=== PATIENT | female | born 1955 | race Caucasian/White ===

== ENCOUNTER 2018-12-19 05:01 | Inpatient (IN) ==
[2018-12-19] MEDS ORDERED: VANCOMYCIN INJ 1,000 MG in SODIUM CHLORIDE 0.9% 250 ML IV ONE (06:00)
[2018-12-19] MEDS ORDERED: ceFAZolin 1,000 MG in SYRINGE 1 EACH IV ONE (06:00)
[2018-12-19] MEDS ORDERED: FLECAINIDE 100 MG TABLET PO STA (06:32)
[2018-12-19] MEDS ORDERED: METOPROLOL TARTRATE 25 MG TABLET PO STA (06:32)
[2018-12-19] MEDS ORDERED: VANCOMYCIN 1,000 MG VIAL ONE (06:36)
[2018-12-19] MEDS ORDERED: ceFAZolin 1,000 MG VIAL ONE (06:36)
[2018-12-19] MEDS ORDERED: ROPIVACAINE 0.5% 30 ML VIAL ONE (06:56)
[2018-12-19] MEDS ORDERED: BUPIVACAINE SPINAL 0.75% 2 ML AMP SPINAL ONE (06:56)
[2018-12-19] MEDS ORDERED: DIAZEPAM 5 MG TABLET PO ONE (06:56)
[2018-12-19] MEDS ORDERED: FAMOTIDINE 20 MG TABLET PO ONE (06:56)
[2018-12-19] MEDS ORDERED: LACTATED RINGERS 1,000 ML IV SCH (07:00)
[2018-12-19] MEDS ORDERED: DIAZEPAM 5 MG TABLET ONE (07:04)
[2018-12-19] MEDS ORDERED: FAMOTIDINE 20 MG TABLET ONE (07:04)
[2018-12-19] MEDS ORDERED: TRANEXAMIC ACID 1,000 MG/10 ML VIAL ONE (07:10)
[2018-12-19] MEDS ORDERED: BACITRACIN OINT 0.9 GM PACK TOP ONE (07:13)
[2018-12-19] MEDS ORDERED: fentaNYL 100 MCG/2 ML VIAL ONE (10:04)
[2018-12-19] MEDS ORDERED: MIDAZOLAM 2 MG/2 ML VIAL ONE (10:04)
[2018-12-19] MEDS ORDERED: ePHEDrine 50 MG/ML AMP ONE (10:05)
[2018-12-19] MEDS ORDERED: SODIUM CHLORIDE 0.9% 250 ML IV ONE (10:05)
[2018-12-19] MEDS ORDERED: MEPERIDINE 25 MG/1 ML VIAL ONE (10:05)
[2018-12-19] MEDS ORDERED: ACETAMINOPHEN 1,000 MG/100 ML VIAL IV ONE (10:05)
[2018-12-19] MEDS ORDERED: SODIUM CHLORIDE 0.9% 100 ML IV ONE (10:05)
[2018-12-19] MEDS ORDERED: PROPOFOL 200 MG/20 ML VIAL IV ONE (10:05)
[2018-12-19] MEDS ORDERED: SEVOFLURANE 1 UNIT/15 MINUTE INH ONE (10:05)
[2018-12-19] MEDS ORDERED: LACTATED RINGERS 1,000 ML IV ONE (10:05)
[2018-12-19] MEDS ORDERED: ONDANSETRON 4 MG/2 ML VIAL ONE ×2 (10:05→10:06)
[2018-12-19] MEDS ORDERED: PROMETHAZINE 25 MG/1 ML VIAL ONE (10:06)
[2018-12-19] MEDS ORDERED: HYDROmorphone 2 MG/1 ML VIAL ONE (10:06)
[2018-12-19] MEDS: HYDROmorphone 2 MG/1 ML VIAL IV PRN ×4 (10:10→10:25)
[2018-12-19] MEDS ORDERED: PROMETHAZINE INJ 25 MG in SODIUM CHLORIDE 0.9% 50 ML IV PRN (10:14)
[2018-12-19] MEDS ORDERED: ONDANSETRON 4 MG/2 ML VIAL IV PRN (10:14)
[2018-12-19] MEDS ORDERED: MEPERIDINE 25 MG/1 ML VIAL IV PRN (10:14)
[2018-12-19] MEDS ORDERED: diphenhydrAMINE CAP 25 MG CAPSULE PO PRN (10:40)
[2018-12-19] MEDS ORDERED: MORPHINE 4 MG/1 ML VIAL IV PRN ×2 (10:40)
[2018-12-19] MEDS ORDERED: ZALEPLON 5 MG CAPSULE PO PRN (10:40)
[2018-12-19] MEDS ORDERED: MAGNESIUM HYDROXIDE SUSP 30 ML UDCUP PO PRN (10:40)
[2018-12-19] MEDS ORDERED: oxyCODONE IR 5 MG TABLET PO PRN ×2 (10:40)
[2018-12-19] MEDS: LACTATED RINGERS 1,000 ML IV SCH ×3 (11:14→22:15)
[2018-12-19] MEDS: KETOROLAC 30 MG/1 ML VIAL IV SCH ×3 (11:16→23:19)
[2018-12-19] MEDS ORDERED: KETOROLAC 30 MG/1 ML VIAL ONE (11:16)
[2018-12-19] MEDS ORDERED: GLUCAGON 1 MG VIAL IM PRN (13:54)
[2018-12-19] MEDS ORDERED: DEXTROSE 50% 25 GM/50 ML SYRINGE IV PRN (13:54)
[2018-12-19] MEDS: ACETAMINOPHEN 500 MG TABLET PO SCH ×2 (14:26→20:36)
[2018-12-19] MEDS: ceFAZolin 2,000 MG in PREMIX 1 EACH IV SCH ×2 (14:27→23:25)
[2018-12-19 16:37] LABS: Basophils % 0.3 % (0.0-0.8); Eosinophils # 0.1 10*3/uL (0.0-0.87); Eosinophils % 0.6 % (0.00-10.9); Immature Granulocytes % 0.5 %; Immature Granulocytes Absolute 0.04 #; Lymphocytes # 1.5 10*3/uL (1.4-4.0); Mean Corpuscular HGB Conc 31.4 GM/DL (32-36); Mean Corpuscular Hemoglobin 29 PG (27-34); Mean Corpuscular Volume 93.3 FL (87-102); Mean Platelet Volume 9.5 FL (9.6-12.0); Monocytes # 0.7 10*3/uL (0.11-0.8); Monocytes % 7.8 % (1.7-12.7); Neutrophils # 6.5 10*3/uL (1.4-7.4); Neutrophils % 73.8 % (38.7-73.9); Platelet Count 163 T/CUMM (130-400); Red Blood Count 3.75 MC/CUMM (3.8-5.5); Red Cell Distribution Width 12.7 % (9.3-17.3); White Blood Count 8.8 T/CUMM (4-12)
[2018-12-19] MEDS: INSULIN LISPRO 100 UNIT/ML SUBCUT SCH ×2 (16:48→22:15)
[2018-12-19 16:51] LABS: Calcium 8.3 MG/DL (8.5-10.1); Osmolality,Calculated 283.1 MOS/KG (273-304); Potassium 4.4 MMOL/L (3.5-5.1)
[2018-12-19] MEDS: metFORMIN 500 MG TABLET PO SCH (16:52)
[2018-12-19] MEDS ORDERED: SIMVASTATIN 20 MG TABLET PO SCH ×2 (19:00→21:00)
[2018-12-19] MEDS: FLECAINIDE 50 MG TABLET PO SCH (20:34)
[2018-12-19] MEDS: GABAPENTIN 600 MG TABLET PO SCH (20:35)
[2018-12-19] MEDS: DOCUSATE SODIUM 100 MG CAPSULE PO SCH (20:35)
[2018-12-19] MEDS: FERROUS SULFATE 325 MG TABLET PO SCH (20:35)
[2018-12-19] MEDS: PANTOPRAZOLE 40 MG TABLET PO SCH (20:35)
[2018-12-19] MEDS: buPROPion SR 150 MG TABLET PO SCH (20:35)
[2018-12-19] MEDS: METOPROLOL TARTRATE 25 MG TABLET PO SCH (20:36)
[2018-12-19] MEDS ORDERED: CITALOPRAM 20 MG TABLET PO SCH (21:00)
[2018-12-20] MEDS: LACTATED RINGERS 1,000 ML IV SCH (03:08)
[2018-12-20] MEDS: ACETAMINOPHEN 500 MG TABLET PO SCH ×2 (03:56→08:45)
[2018-12-20] MEDS: KETOROLAC 30 MG/1 ML VIAL IV SCH ×2 (05:50→10:12)
[2018-12-20] MEDS ORDERED: FONDAPARINUX 2.5 MG/0.5 ML SYRINGE SUBCUT SCH (06:00)
[2018-12-20 06:43] LABS: Calcium 8.1 MG/DL (8.5-10.1); Osmolality,Calculated 272.8 MOS/KG (273-304); Potassium 4.2 MMOL/L (3.5-5.1)
[2018-12-20 06:56] LABS: Basophils % 0.4 % (0.0-0.8); Eosinophils # 0.1 10*3/uL (0.0-0.87); Eosinophils % 0.8 % (0.00-10.9); Hematocrit 32.6 VOL% (35.7-47.0); Hemoglobin 10.3 GM/DL (12.0-16.0); Immature Granulocytes % 0.2 %; Immature Granulocytes Absolute 0.02 #; Lymphocytes # 1.3 10*3/uL (1.4-4.0); Lymphocytes % 15.6 % (21.3-54.2); Mean Corpuscular HGB Conc 31.6 GM/DL (32-36); Mean Corpuscular Hemoglobin 29 PG (27-34); Mean Corpuscular Volume 92.1 FL (87-102); Mean Platelet Volume 9.7 FL (9.6-12.0); Monocytes # 0.7 10*3/uL (0.11-0.8); Monocytes % 8.4 % (1.7-12.7); Neutrophils # 6.2 10*3/uL (1.4-7.4); Neutrophils % 74.6 % (38.7-73.9); Platelet Count 179 T/CUMM (130-400); Red Blood Count 3.54 MC/CUMM (3.8-5.5); Red Cell Distribution Width 12.6 % (9.3-17.3); White Blood Count 8.3 T/CUMM (4-12)
[2018-12-20] MEDS: INSULIN LISPRO 100 UNIT/ML SUBCUT SCH ×2 (07:27→12:44)
[2018-12-20] MEDS: metFORMIN 500 MG TABLET PO SCH (08:44)
[2018-12-20] MEDS: buPROPion SR 150 MG TABLET PO SCH (08:44)
[2018-12-20] MEDS: FLECAINIDE 50 MG TABLET PO SCH (08:44)
[2018-12-20] MEDS: METOPROLOL TARTRATE 25 MG TABLET PO SCH (08:45)
[2018-12-20] MEDS: DOCUSATE SODIUM 100 MG CAPSULE PO SCH (08:46)
[2018-12-20] MEDS: PANTOPRAZOLE 40 MG TABLET PO SCH (08:46)
[2018-12-20] MEDS: GABAPENTIN 600 MG TABLET PO SCH (08:46)
[2018-12-20] MEDS: FERROUS SULFATE 325 MG TABLET PO SCH (08:46)
[2018-12-20 12:11] VITALS: BP 118/58
[2018-12-20] MEDS ORDERED: CELECOXIB 200 MG CAPSULE PO SCH (16:41)
[2018-12-21] MEDS ORDERED: FUROSEMIDE 40 MG TABLET PO SCH (09:00)
== END 2018-12-20 12:43 | disposition home health service (06) | DRG 470 ==
LOC: N.OR 05:01 → N.SDSINP 05:02 → N.3E 10:40
PROVIDERS: ADMIT Orthopaedic Surgery; ATTEND Orthopaedic Surgery

== ENCOUNTER 2022-03-08 16:34 | Observation (INO) ==
[2022-03-08] MEDS ORDERED: MECLIZINE 25 MG TABLET PO STA (18:43)
[2022-03-08] MEDS ORDERED: ONDANSETRON 4 MG/2 ML VIAL IV STA (18:43)
[2022-03-08] MEDS ORDERED: SODIUM CHLORIDE 0.9% 500 ML IV STA ×2 (18:43→21:40)
[2022-03-08 19:30] LABS: Basophils % 0.5 % (0.0-0.8); Eosinophils % 0.6 % (0.00-10.9); Hematocrit 39.1 VOL% (35.7-47.0); Hemoglobin 12.9 GM/DL (12.0-16.0); Immature Granulocytes % 0.2 %; Immature Granulocytes Absolute 0.01 #; Lymphocytes # 1.8 10*3/uL (1.4-4.0); Mean Corpuscular Volume 94.2 FL (87-102); Mean Platelet Volume 9.2 FL (9.6-12.0); Monocytes # 0.5 10*3/uL (0.11-0.8); Monocytes % 7.5 % (1.7-12.7); Neutrophils % 64.2 % (38.7-73.9); Platelet Count 207 T/CUMM (130-400); Red Blood Count 4.15 MC/CUMM (3.8-5.5); Red Cell Distribution Width 12.4 % (9.3-17.3); White Blood Count 6.6 T/CUMM (4-12)
[2022-03-08 19:50] LABS: Alanine Aminotransferase 19 U/L (13-56); Albumin 3.7 G/DL (3.4-5.0); Alkaline Phosphatase 70 U/L (45-117); Aspartate Amino Transferase 15 U/L (0-37); Blood Urea Nitrogen 26 MG/DL (7-18); Calcium 8.8 MG/DL (8.5-10.1); Carbon Dioxide 23 MMOL/L (21-32); Chloride 107 MMOL/L (98-107); Osmolality,Calculated 274.8 MOS/KG (273-304); Potassium 4.6 MMOL/L (3.5-5.1); Sodium 137 MMOL/L (136-145); Total Protein 6.6 G/DL (6.4-8.2)
[2022-03-08 19:57] LABS: Glucose 46 MG/DL (74-106)
[2022-03-08] MEDS ORDERED: DEXTROSE 50% 25 GM/50 ML VIAL IV STA (19:57)
[2022-03-08] MEDS ORDERED: DEXTROSE 50% 25 GM/50 ML SYRINGE IV STA (20:02)
[2022-03-08] MEDS ORDERED: DEXTROSE 50% 25 GM/50 ML SYRINGE IV ONE (20:02)
[2022-03-08 21:01] LABS: Bacteria,Urine Occasional /HPF (Few); Hyaline Casts,Urine 18 /LPF (0-3); Mucus,Urine Occasional /LPF (Occasional); RBC,Urine 1 /HPF (0-4); Squamous Epithelial Cell,Urine Occasional /HPF (0-10)
[2022-03-08 21:03] LABS: Bilirubin,Urine Negative (Negative); Blood, Urine Negative (Negative); Glucose,Urine (UA) Negative (Negative); Ketones,Urine Negative (Negative); Nitrite,Urine Negative (Negative); Protein,Urine Negative (Negative); Urine Appearance Clear (Clear); Urine Color Yellow (Yellow); Urine Specific Gravity 1.015 (1.001-1.035); Urine Urobilinogen 0.2 eU/dL (<2.0)
[2022-03-08 21:04] LABS: Barbiturates Screen,Urine Negative (Negative); Benzodiazepines Screen,Urine Negative (Negative); Cannabinoid Screen,Urine Negative (Negative); Opiate Screen,Urine Negative (Negative); Phencyclidine Screen,Urine Negative (Negative)
[2022-03-09] MEDS ORDERED: ONDANSETRON 4 MG/2 ML VIAL IV PRN (00:42)
[2022-03-09] MEDS ORDERED: ACETAMINOPHEN 325 MG TABLET PO PRN (00:42)
[2022-03-09] MEDS ORDERED: GLUCAGON 1 MG VIAL IM PRN (00:42)
[2022-03-09] MEDS ORDERED: DEXTROSE 10% 250 ML BAG IV PRN (00:46)
[2022-03-09] MEDS: SODIUM CHLORIDE 0.9% 1,000 ML IV SCH ×3 (01:00→21:39)
[2022-03-09] MEDS: INSULIN REGULAR 100 UNIT/ML SUBCUT SCH ×5 (01:11→21:44)
[2022-03-09 02:21] LABS: Basophils # 0.1 10*3/uL (0.0-0.2); Basophils % 0.8 % (0.0-0.8); Eosinophils # 0.1 10*3/uL (0.0-0.87); Eosinophils % 1.9 % (0.00-10.9); Hematocrit 34.9 VOL% (35.7-47.0); Hemoglobin 11.6 GM/DL (12.0-16.0); Immature Granulocytes % 0.2 %; Immature Granulocytes Absolute 0.01 #; Lymphocytes # 2.5 10*3/uL (1.4-4.0); Mean Corpuscular HGB Conc 33.2 GM/DL (32-36); Mean Corpuscular Volume 93.1 FL (87-102); Mean Platelet Volume 9.1 FL (9.6-12.0); Monocytes # 0.6 10*3/uL (0.11-0.8); Monocytes % 10.2 % (1.7-12.7); Neutrophils % 46.9 % (38.7-73.9); Platelet Count 174 T/CUMM (130-400); Red Blood Count 3.75 MC/CUMM (3.8-5.5); Red Cell Distribution Width 12.5 % (9.3-17.3); White Blood Count 6.2 T/CUMM (4-12)
[2022-03-09 02:43] LABS: Albumin 3.2 G/DL (3.4-5.0); Bilirubin,Total 0.5 MG/DL (0.20-1.00); Calcium 8.3 MG/DL (8.5-10.1); Osmolality,Calculated 277.8 MOS/KG (273-304); Potassium 4.4 MMOL/L (3.5-5.1); Total Protein 6.1 G/DL (6.4-8.2)
[2022-03-09] MEDS ORDERED: NON-FORMULARY MEDICATION (Omeprazole 20 MG capsule,delayed release(DR/EC)) PO SCH (09:00)
[2022-03-09] MEDS ORDERED: SIMVASTATIN 20 MG TABLET PO SCH ×2 (09:00→21:00)
[2022-03-09] MEDS: buPROPion SR 150 MG TABLET PO SCH ×2 (09:08→21:39)
[2022-03-09] MEDS: NABUMETONE 500 MG TABLET PO SCH ×2 (09:08→21:38)
[2022-03-09] MEDS: METOPROLOL TARTRATE 25 MG TABLET PO SCH ×2 (09:08→21:39)
[2022-03-09] MEDS: FLECAINIDE 50 MG TABLET PO SCH ×2 (09:08→21:38)
[2022-03-09] MEDS: PANTOPRAZOLE 40 MG TABLET PO SCH (09:08)
[2022-03-09] MEDS: ASPIRIN EC 81 MG TABLET PO SCH (09:08)
[2022-03-09] MEDS: DOCUSATE SODIUM 100 MG CAPSULE PO SCH ×2 (09:08→21:39)
[2022-03-09] MEDS: FERROUS SULFATE 325 MG TABLET PO SCH ×2 (09:08→21:39)
[2022-03-09] MEDS: GABAPENTIN 600 MG TABLET PO SCH ×2 (09:08→21:38)
[2022-03-09] MEDS ORDERED: CITALOPRAM 40 MG TABLET PO SCH (21:00)
[2022-03-10 04:46] LABS: Basophils % 0.8 % (0.0-0.8); Eosinophils # 0.1 10*3/uL (0.0-0.87); Eosinophils % 2.3 % (0.00-10.9); Hematocrit 36.4 VOL% (35.7-47.0); Hemoglobin 12.2 GM/DL (12.0-16.0); Immature Granulocytes % 0.2 %; Immature Granulocytes Absolute 0.01 #; Lymphocytes # 1.9 10*3/uL (1.4-4.0); Lymphocytes % 40.1 % (21.3-54.2); Mean Corpuscular HGB Conc 33.5 GM/DL (32-36); Mean Corpuscular Volume 92.2 FL (87-102); Mean Platelet Volume 9.1 FL (9.6-12.0); Monocytes # 0.6 10*3/uL (0.11-0.8); Monocytes % 12.3 % (1.7-12.7); Neutrophils % 44.3 % (38.7-73.9); Platelet Count 170 T/CUMM (130-400); Red Blood Count 3.95 MC/CUMM (3.8-5.5); Red Cell Distribution Width 12.3 % (9.3-17.3); White Blood Count 4.7 T/CUMM (4-12)
[2022-03-10 05:14] LABS: Bilirubin,Total 0.4 MG/DL (0.20-1.00); Calcium 9.2 MG/DL (8.5-10.1); Potassium 4.7 MMOL/L (3.5-5.1); Thyroid Stimulating Hormone 1.28 uIU/ml (0.358-3.74)
[2022-03-10] MEDS: SODIUM CHLORIDE 0.9% 1,000 ML IV SCH (06:43)
[2022-03-10 07:42] VITALS: BP 146/76
[2022-03-10] MEDS: INSULIN REGULAR 100 UNIT/ML SUBCUT SCH (07:50)
[2022-03-10] MEDS: buPROPion SR 150 MG TABLET PO SCH (08:09)
[2022-03-10] MEDS: FERROUS SULFATE 325 MG TABLET PO SCH (08:09)
[2022-03-10] MEDS: GABAPENTIN 600 MG TABLET PO SCH (08:09)
[2022-03-10] MEDS: NABUMETONE 500 MG TABLET PO SCH (08:09)
[2022-03-10] MEDS: DOCUSATE SODIUM 100 MG CAPSULE PO SCH (08:09)
[2022-03-10] MEDS: METOPROLOL TARTRATE 25 MG TABLET PO SCH (08:10)
[2022-03-10] MEDS: ASPIRIN EC 81 MG TABLET PO SCH (08:10)
[2022-03-10] MEDS: FLECAINIDE 50 MG TABLET PO SCH (08:10)
[2022-03-10] MEDS: PANTOPRAZOLE 40 MG TABLET PO SCH (08:10)
[2022-03-10] MEDS ORDERED: FUROSEMIDE 40 MG TABLET PO SCH (09:00)
== END 2022-03-10 09:56 | disposition home or self-care (01) ==
LOC: N.ED 16:34 → N.EDINP 16:34 → N.3E 03-09 01:09
PROVIDERS: ADMIT Family Medicine; ATTEND Family Medicine

== ENCOUNTER 2022-03-30 20:26 | Observation (INO) ==
[2022-03-30 21:18] LABS: Basophils % 0.4 % (0.0-0.8); Eosinophils # 0.1 10*3/uL (0.0-0.87); Hematocrit 35.8 VOL% (35.7-47.0); Hemoglobin 12.3 GM/DL (12.0-16.0); Immature Granulocytes % 0.4 %; Immature Granulocytes Absolute 0.03 #; Lymphocytes # 1.2 10*3/uL (1.4-4.0); Lymphocytes % 17.7 % (21.3-54.2); Mean Corpuscular HGB Conc 34.4 GM/DL (32-36); Mean Corpuscular Volume 91.6 FL (87-102); Mean Platelet Volume 9.6 FL (9.6-12.0); Monocytes # 0.6 10*3/uL (0.11-0.8); Monocytes % 9.2 % (1.7-12.7); Neutrophils % 71.3 % (38.7-73.9); Platelet Count 230 T/CUMM (130-400); Red Blood Count 3.91 MC/CUMM (3.8-5.5); Red Cell Distribution Width 12.4 % (9.3-17.3); White Blood Count 6.9 T/CUMM (4-12)
[2022-03-30 21:34] LABS: Bacteria,Urine Occasional /HPF (Few); Squamous Epithelial Cell,Urine Occasional /HPF (0-10)
[2022-03-30] MEDS ORDERED: ACETAMINOPHEN 325 MG TABLET PO PRN (21:34)
[2022-03-30] MEDS ORDERED: ONDANSETRON 4 MG/2 ML VIAL IV PRN (21:34)
[2022-03-30 21:35] LABS: Bilirubin,Urine Negative (Negative); Blood, Urine Trace mg/dL (Negative); Glucose,Urine (UA) Negative (Negative); Ketones,Urine Negative (Negative); Nitrite,Urine Negative (Negative); Protein,Urine Negative (Negative); Urine Appearance Clear (Clear); Urine Color Yellow (Yellow); Urine Specific Gravity <= 1.005 (1.001-1.035); Urine Urobilinogen 0.2 eU/dL (<2.0); Urine pH 5.5 (4.5-8.0)
[2022-03-30 21:57] LABS: Albumin 3.3 G/DL (3.4-5.0); Bilirubin,Total 0.5 MG/DL (0.20-1.00); Osmolality,Calculated 268.1 MOS/KG (273-304); Potassium 3.7 MMOL/L (3.5-5.1); Total Protein 6.2 G/DL (6.4-8.2)
[2022-03-30] MEDS ORDERED: DEXTROSE 10% 1,000 ML IV SCH (23:30)
[2022-03-30] MEDS: ENOXAPARIN 40 MG/0.4 ML SYRINGE SUBCUT SCH (23:45)
[2022-03-31 04:28] LABS: Basophils % 0.3 % (0.0-0.8); Eosinophils # 0.1 10*3/uL (0.0-0.87); Eosinophils % 1.5 % (0.00-10.9); Hematocrit 33.9 VOL% (35.7-47.0); Hemoglobin 11.5 GM/DL (12.0-16.0); Immature Granulocytes % 0.2 %; Immature Granulocytes Absolute 0.01 #; Lymphocytes % 34.8 % (21.3-54.2); Mean Corpuscular HGB Conc 33.9 GM/DL (32-36); Mean Corpuscular Volume 92.1 FL (87-102); Mean Platelet Volume 8.8 FL (9.6-12.0); Monocytes # 0.6 10*3/uL (0.11-0.8); Monocytes % 10.6 % (1.7-12.7); Neutrophils % 52.6 % (38.7-73.9); Platelet Count 214 T/CUMM (130-400); Red Blood Count 3.68 MC/CUMM (3.8-5.5); Red Cell Distribution Width 12.4 % (9.3-17.3); White Blood Count 5.9 T/CUMM (4-12)
[2022-03-31 04:56] LABS: Calcium 8.3 MG/DL (8.5-10.1); Osmolality,Calculated 280.3 MOS/KG (273-304); Potassium 3.9 MMOL/L (3.5-5.1)
[2022-03-31] MEDS ORDERED: DEXTROSE 10% 500 ML IV SCH (05:30)
[2022-03-31] MEDS: INSULIN LISPRO 100 UNIT/ML SUBCUT SCH ×4 (07:41→20:50)
[2022-03-31] MEDS ORDERED: FUROSEMIDE 40 MG TABLET PO SCH (09:00)
[2022-03-31] MEDS: FLECAINIDE 100 MG TABLET PO SCH ×2 (09:16→20:49)
[2022-03-31] MEDS: SIMVASTATIN 20 MG TABLET PO SCH (09:16)
[2022-03-31] MEDS: METOPROLOL TARTRATE 25 MG TABLET PO SCH ×2 (09:16→20:49)
[2022-03-31] MEDS: buPROPion SR 150 MG TABLET PO SCH ×2 (09:16→20:49)
[2022-03-31] MEDS: ASPIRIN EC 81 MG TABLET PO SCH (09:16)
[2022-03-31] MEDS: PANTOPRAZOLE 40 MG TABLET PO SCH (09:16)
[2022-03-31] MEDS: DOCUSATE SODIUM 100 MG CAPSULE PO SCH ×2 (09:17→20:50)
[2022-03-31] MEDS: GABAPENTIN 600 MG TABLET PO SCH ×2 (09:17→20:49)
[2022-03-31] MEDS ORDERED: DICLOFENAC 1% GEL 100 GM TUBE TOP PRN (18:56)
[2022-03-31] MEDS ORDERED: CITALOPRAM 40 MG TABLET PO SCH (21:00)
[2022-04-01] MEDS: ENOXAPARIN 40 MG/0.4 ML SYRINGE SUBCUT SCH (00:09)
[2022-04-01 06:45] LABS: Basophils % 0.8 % (0.0-0.8); Eosinophils # 0.1 10*3/uL (0.0-0.87); Eosinophils % 2.3 % (0.00-10.9); Hematocrit 38.7 VOL% (35.7-47.0); Hemoglobin 12.8 GM/DL (12.0-16.0); Immature Granulocytes % 0.4 %; Immature Granulocytes Absolute 0.02 #; Lymphocytes # 1.5 10*3/uL (1.4-4.0); Lymphocytes % 32.2 % (21.3-54.2); Mean Corpuscular HGB Conc 33.1 GM/DL (32-36); Mean Platelet Volume 9.2 FL (9.6-12.0); Monocytes # 0.5 10*3/uL (0.11-0.8); Monocytes % 10.9 % (1.7-12.7); Neutrophils % 53.4 % (38.7-73.9); Platelet Count 213 T/CUMM (130-400); Red Blood Count 4.16 MC/CUMM (3.8-5.5); Red Cell Distribution Width 12.7 % (9.3-17.3); White Blood Count 4.8 T/CUMM (4-12)
[2022-04-01 07:22] LABS: Calcium 9.3 MG/DL (8.5-10.1); Osmolality,Calculated 284.3 MOS/KG (273-304); Potassium 4.3 MMOL/L (3.5-5.1)
[2022-04-01 07:58] VITALS: BP 137/65
[2022-04-01] MEDS: FLECAINIDE 100 MG TABLET PO SCH (10:02)
[2022-04-01] MEDS: DOCUSATE SODIUM 100 MG CAPSULE PO SCH (10:03)
[2022-04-01] MEDS: METOPROLOL TARTRATE 25 MG TABLET PO SCH (10:03)
[2022-04-01] MEDS: GABAPENTIN 600 MG TABLET PO SCH (10:04)
[2022-04-01] MEDS: SIMVASTATIN 20 MG TABLET PO SCH (10:04)
[2022-04-01] MEDS: buPROPion SR 150 MG TABLET PO SCH (10:04)
[2022-04-01] MEDS: PANTOPRAZOLE 40 MG TABLET PO SCH (10:04)
[2022-04-01] MEDS: ASPIRIN EC 81 MG TABLET PO SCH (10:04)
[2022-04-01] MEDS: INSULIN LISPRO 100 UNIT/ML SUBCUT SCH (10:09)
== END 2022-04-01 11:05 | disposition home or self-care (01) ==
LOC: EDUNIT# → EDBD → N.EDINP 20:26 → N.ED 20:26 → N.5E 03-31 05:40
PROVIDERS: ADMIT Family Medicine; ATTEND Family Medicine